=== PATIENT | male | born 1980 | race American Indian/Alaskan Native ===

== ENCOUNTER 2016-11-24 19:02 | Emergency (ER) | payer MEDICAID, MEDICARE ==
[2016-11-24 19:07] VITALS: BMI 20.5
[2016-11-24 19:10] VITALS: BP 128/80; PULSE 96; RESP 18; TEMP 97.7; O2SAT 99
--- NOTE | 2016-11-24 20:08 | ED PDOC ---
Arrival/HPI - General Chief Complaint: Finger,Hand,&Wrist Time Seen by Provider: 11/24/16 19:03 Historian: Patient - History of Present Illness Narrative History of Present Illness (Text): 11/24/16 20:04 36-year-old male presents today with left fifth finger pain. Patient states that about 3 months ago he closed his hand in the door sustaining an injury to the finger. Patient states to this being the finger is still not healed correctly. He has continued pain to the finger and limited flexion of the finger. Patient also states that he cannot get the distal aspect of the finger to extend. Patient denies numbness weakness or tingling in the extremity. No medications have been taken for pain at home. No other complaints Time/Duration: Other (3 weeks) Symptom Onset: Sudden Symptom Course: Unchanged Quality: Aching Severity Level: 3 Past Medical History - Provider Review Nursing Documentation Reviewed: Yes - Travel History Have you recently traveled outside [place] w/in the past 3 mons?: No - Infectious Disease Hx of Infectious Diseases: None - Tetanus Immunization Tetanus Immunization: Unknown - Cardiac Hx Cardiac Disorders: No - Pulmonary Hx Respiratory Disorders: No - Neurological Hx Neurological Disorder: No - HEENT Hx HEENT Disorder: No - Renal Hx Renal Disorder: No Hx Kidney Stones: No - Endocrine/Metabolic Hx Endocrine Disorders: No - Hematological/Oncological Hx Cancer: Yes (Osteosarcoma right leg) - Integumentary Hx Dermatological Disorder: No - Musculoskeletal/Rheumatological Hx Musculoskeletal Disorders: No - Gastrointestinal Hx Gastrointestinal Disorders: No - Genitourinary/Gynecological Hx Genitourinary Disorders: No - Psychiatric Hx Psychophysiologic Disorder: No Hx Substance Use: Yes - Surgical History Hx Amputation: Yes (Right AKA) - Anesthesia Hx Anesthesia: Yes Hx Anesthesia Reactions: No Hx Malignant Hyperthermia: No Family/Social History - Physician Review Nursing Documentation Reviewed: Yes Family/Social History: Unknown Family HX Smoking Status: Never Smoked Hx Alcohol Use: Yes Frequency of alcohol use: Socially Hx Substance Use: Yes Substance used: mariquana Allergies/Home Meds Allergies/Adverse Reactions: Allergies No Known Allergies Allergy (Verified 01/24/16 10:23) Home Medications: Home Meds Medication Instructions Recorded Confirmed No Known Home Med 01/10/16 11/24/16 Review of Systems - Review of Systems Constitutional: absent: Fatigue, Fevers Respiratory: absent: SOB, Cough Cardiovascular: absent: Chest Pain, Palpitations Musculoskeletal: Arthralgias. absent: Back Pain, Neck Pain Skin: absent: Rash, Pruritis Psychiatric: absent: Anxiety, Depression Physical Exam Vital Signs Reviewed: Yes Vital Signs Temp Pulse Resp BP Pulse Ox 11/24/16 19:10 97.7 F 96 H 18 128/80 99 Temperature: Afebrile Blood Pressure: Normal Pulse: Regular Respiratory Rate: Normal Appearance: Positive for: Well-Appearing, Non-Toxic, Comfortable Pain Distress: None Mental Status: Positive for: Alert and Oriented X 3 - Systems Exam Head: Present: Atraumatic Mouth: Present: Moist Mucous Membranes Respiratory/Chest: Present: Clear to Auscultation, Good Air Exchange. No: Respiratory Distress, Accessory Muscle Use Cardiovascular: Present: Regular Rate and Rhythm, Normal S1, S2. No: Murmurs Upper Extremity: Present: NORMAL PULSES, Tenderness (left 5th finger; + ttp over proximal phalanx. decreased flexion of finger. sensation and distal pulses intact; decreased extention of distal phalanx; no edema, no erythema. no ecchymosis. ), Neurovascularly Intact, Capillary Refill < 2s. No: Normal ROM, Swelling, Erythema, Deformity Neurological: Present: GCS=15 Skin: Present: Warm, Dry Psychiatric: Present: Alert, Oriented x 3 Medical Decision Making ED Course and Treatment: 11/24/16 20:09 Patient is nontoxic well-appearing in no distress her vital signs are stable. XRAY finger; + fracture proximal phalanx. finger splint applied. I discussed all results in depth with the patient advised follow-up with the orthopedist within the next 2 days. I've advised me to return if symptoms worsen persist or if new concerning symptoms develop Patient verbalized full agreement with and understanding of discharge instructions. States that he agrees with the plan and disposition. Verbalized and repeated discharge instructions and plan. I have given the patient opportunity to ask any additional questions. all aspects of this case were discussed the attending of record. IMPRESSION: Fracture, finger Motrin every 6 hours as needed for pain Follow up with primary care physician within the next 2 days Follow up with the orthopedist within the next 2 days Return if symptoms worsen persist or if new symptoms develop - RAD Interpretation Radiology Orders: 11/24/16 19:18 HAND LEFT 5TH DIGIT (FINGER) [RAD] Stat Disposition/Present on Arrival - Present on Arrival Any Indicators Present on Arrival: No History of DVT/PE: No History of Uncontrolled Diabetes: No Urinary Catheter: No History of Decub. Ulcer: No History Surgical Site Infection Following: None - Disposition Have Diagnosis and Disposition been Completed?: Yes Diagnosis: Finger fracture Disposition: HOME/ ROUTINE Disposition Time: 20:21 Patient Plan: Discharge Condition: GOOD Discharge Instructions (ExitCare): Finger Fracture (ED) Additional Instructions: Motrin every 6 hours as needed for pain Follow up with primary care physician within the next 2 days Follow up with the orthopedist within the next 2 days Return if symptoms worsen persist or if new symptoms develop Referrals: Audie Fuller MD [Staff Provider] - Follow up with primary Shaun Muir MD [Staff Provider] - Follow up with primary Arianna Carney MD [Non-Staff] - Follow up with primary
--- NOTE | 2016-11-25 08:37 | RAD ---
PROCEDURE: Left small finger radiographs. HISTORY: injured finger 3 months ago. c/o pain COMPARISON: None. TECHNIQUE: AP radiograph of the left hand, as well as spot oblique and lateral images of left small finger were obtained. FINDINGS: LEFT SMALL FINGER: There is an acute transverse nondisplaced fracture in the base of the proximal phalanx of the little finger. Remainder of the left hand (as seen on the AP view) is grossly unremarkable. JOINTS: Normal. SOFT TISSUES: Normal. OTHER FINDINGS: None. IMPRESSION: Acute transverse nondisplaced fracture in the base of the proximal phalanx of the little finger.
== END 2016-11-24 20:43 | disposition home or self-care (01) ==
LOC: ED 19:02
DX: S62.647A Nondisplaced fracture of proximal phalanx of left little finger, initial encounter for closed fracture (principal); W22.8XXA Striking against or struck by other objects, initial encounter